=== PATIENT | female | born 1945 | race Caucasian/White ===

== ENCOUNTER 2017-06-19 10:55 | Inpatient (IN) | payer BC, OTHER ==
[~2017-06-19] VITALS: Ht 152.4 cm; Wt 54.5 kg
[~2017-06-19 10:55] MED LIST: ASPI-664 PO; CLON0.1T95 PO; GLIP2.5T15 PO; LISI40TA9 PO; LOPE2CAP PO; METF-480 PO; METO100T PO; SIMVASTATIN PO; TRAM50TA2 PO
[2017-06-19] MEDS ORDERED: SODIUM CHLORIDE 0.9% 1L BAG IV* STA ×2 (11:13→15:42)
[2017-06-19] MEDS ORDERED: FUROSEMIDE 40 MG INJ IV STA (11:22)
[2017-06-19] MEDS ORDERED: NA POLYST SULFON 15 GM/60 ML BTL PO STA (11:22)
[2017-06-19] MEDS ORDERED: NA BICARBONATE 8.4% 50 ML SYG IV STA (11:22)
[2017-06-19] MEDS ORDERED: CA CHLORIDE 10% 10 ML SYRINGE IV STA (11:22)
[2017-06-19 11:41] LABS: ADD SCAN DIFF NO
[2017-06-19 11:44] LABS: BASOPHIL # 0.1 10^3/ul (0.0-0.1); BASOPHILS % 0.4 % (0.0-2.0); EOSINOPHILS # 0.3 10^3/ul (0.0-0.5); HEMATOCRIT 31.5 % (37.0-47.0); HEMOGLOBIN 10.2 g/dl (12.0-16.0); LYMPHOCYTES # 2.4 10^3/ul (0.8-2.9); LYMPHOCYTES % 17.4 % (15.0-51.0); MEAN CORPUSCULAR HEMOGLOBIN 28.4 pg (29.0-33.0); MEAN CORPUSCULAR HGB CONC 32.4 g/dl (32.0-37.0); MEAN CORPUSCULAR VOLUME 87.7 fl (82.0-101.0); MEAN PLATELET VOLUME 11.7 fl (7.4-10.4); MONOCYTES % 7.5 % (0.0-11.0); NEUTROPHIL # 9.7 10^3/ul (1.6-7.5); NEUTROPHILS % 71.8 % (39.0-77.0); PLATELET COUNT 416 10^3/UL (140-415); RED BLOOD COUNT 3.59 10^6/ul (4.20-5.40); RED CELL DISTRIBUTION WIDTH 12.7 % (11.5-14.5); WHITE BLOOD COUNT 13.5 10^3/ul (4.8-10.8)
--- NOTE | 2017-06-19 12:00 | ERA ---
ER Documentation Chief Complaint Date/Time DATE: 06/19/17 TIME: 11:55 Chief Complaint sent by pmd for loss of appet. x20 days, poor historian, son on cellphone HPI This is a 72-year-old Slovak-speaking female that presents to the emergency department complaining of 3 weeks of decrease in appetite, myalgias, decreased urinary output. The son brought the patient to the emergency department after he received a call yesterday from her primary care physician indicating she had abnormal labs. 3 weeks ago the patient had seen her PCP and had ancillary laboratory work performed. The results were given to the patient and her son yesterday with a concern of hyperkalemia as they stated the potassium was 7.0. The patient has no history of renal failure and is not on dialysis. She has had no hemoptysis hematemesis or melanotic stools. She does indicate she has had decreased urinary output as stated above for the past 3 weeks and over the past 12 hours has had no urinary output. She denies any chest pain or pressure that radiates to the neck arm back or jaw. She denies any abdominal pain. 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 She cannot remember the name of her primary care physician. The patient also has a history of non-insulin- dependent diabetes mellitus ROS All systems reviewed and are negative except as per history of present illness. Medications Home Meds Reported Medications Enalapril Maleate* (Enalapril Maleate*) 10 Mg Tablet, 10 MG PO DAILY, TAB 06/19/17 Metformin Hcl* (Metformin Hcl*) 500 Mg Tablet, 1000 MG PO WITH BREAKFAST DINNE, #60 TAB 06/19/17 Discontinued Reported Medications Clonidine Hcl (KAPVAY) 0.1 Mg Tab.er.12h, 0.2 MG PO DAILY 06/28/13 Loperamide Hcl* (Imodium*) 2 Mg Capsule, 2 MG PO BID 03/10/13 Tramadol HCl (Tramadol HCl) 50 Mg Tablet, 50 MG PO PRN PAIN 03/10/13 Glipizide (Glipizide Er) 2.5 Mg/Bottle Tab.osm.24, 2.5 MG PO DAILY, #1 TAB 03/10/13 Lisinopril* (Lisinopril*) 40 Mg Tablet, 40 MG PO DAILY 03/10/13 Metformin* (Glucophage*) 850 Mg Tablet, 850 MG PO TID 03/10/13 Metoprolol (Lopressor) 100 Mg Tablet, 100 MG PO DAILY 03/10/13 Aspirin (Aspirin Low Dose) 81 Mg Tablet.dr, 81 MG PO DAILY 03/10/13 [Simvastatin] No Conflict Check, 20 MG PO DAILY 03/10/13 Allergies Allergies: Coded Allergies: No Known Allergy (Unverified , 06/19/17) PMhx/Soc History of Surgery: Yes (THYROIDECTOMY) Anesthesia Reaction: No Hx Neurological Disorder: No Hx Respiratory Disorders: No Hx Cardiac Disorders: Yes (HTN,CVA) Hx Psychiatric Problems: Yes (DEPRESSION) Hx Miscellaneous Medical Probl: Yes (DIABETES) Hx Alcohol Use: No Hx Substance Use: No Hx Tobacco Use: No Smoking Status: Never smoker Physical Exam Vitals Vital Signs Date Time Temp Pulse Resp B/P Pulse Ox O2 Delivery O2 Flow Rate FiO2 06/19/17 16:32 107 18 108/59 96 06/19/17 14:55 122 24 107/50 96 06/19/17 13:36 129 14 157/91 98 Room Air 06/19/17 11:33 78 20 134/67 93 Room Air 06/19/17 11:00 97.9 76 20 147/66 97 Physical Exam Constitutional:Well-developed. Well-nourished. HEENT:Normocephalic. Atraumatic. Right pupil was reactive to light 2 mm. Corneal clouding of the left eye therefore patient is clinically blind in the left eye from previous stroke with ptosis of the left eye. Dry mucous membranes.No tonsillar exudates. Neck: No nuchal rigidity. No lymphadenopathy. No posterior cervical spine tenderness or step-offs. Respiratory: Not using accessory muscles of respiration.Lungs were clear to auscultation bilaterally. No rhonchi. No rales. No wheezing. Cardiovascular: Regular rate regular rhythm.No murmurs. No rubs were appreciated.S1, S2 normal. Distal pulses are palpable 2+ bilaterally. GI: Abdomen was soft. Nontender. Non Distended. No pulsatile abdominal masses or bruits. No rebound. No guarding. Bowel sounds were present and normal. Muscle skeletal: No asymmetrical calf tenderness or swelling. Full range of motion of the left upper and lower extremity. Muscular strength 2 out of 5 in the right upper and lower extremity with flexion contraction of the right hand. Skin: No petechia, no purpura. No lesions on the palms or the soles of the feet. No maculopapular rash. NEURO: Patient was alert, awake, orientated x3.No facial droop. Gait not observed as patient was brought in a wheelchair and felt too weak to ambulate.Speech had regular rate and rhythm. No focal neurological deficits. Result Diagram: 06/19/17 1130 06/19/17 1130 Results 24 hrs Laboratory Tests Test 06/19/17 11:28 06/19/17 11:30 Bedside Glucose 225mg/dL White Blood Count 13.510^3/ul Red Blood Count 3.5910^6/ul Hemoglobin 10.2g/dl Hematocrit 31.5% Mean Corpuscular Volume 87.7fl Mean Corpuscular Hemoglobin 28.4pg Mean Corpuscular Hemoglobin Concent 32.4g/dl Red Cell Distribution Width 12.7% Platelet Count 13432^3/UL Mean Platelet Volume 11.7fl Neutrophils % 71.8% Lymphocytes % 17.4% Monocytes % 7.5% Eosinophils % 2.0% Basophils % 0.4% Nucleated Red Blood Cells % 0.0/100WBC Neutrophils # 9.710^3/ul Lymphocytes # 2.410^3/ul Monocytes # 1.010^3/ul Eosinophils # 0.310^3/ul Basophils # 0.110^3/ul Nucleated Red Blood Cells # 0.010^3/ul Prothrombin Time 12.1Sec Prothrombin Time Ratio 0.9 INR International Normalized Ratio 0.90 Activated Partial Thromboplast Time 25.0Sec Sodium Level 131mmol/L Potassium Level 7.6mmol/L Chloride Level 97mmol/L Carbon Dioxide Level 23mmol/L Anion Gap 19 Blood Urea Nitrogen 76mg/dl Creatinine 1.85mg/dl Glucose Level 218mg/dl Lactic Acid Level 2.1mmol/L Calcium Level 9.2mg/dl Total Bilirubin 0.1mg/dl Direct Bilirubin 0.00mg/dl Indirect Bilirubin 0.1mg/dl Aspartate Amino Transf (AST/SGOT) 23IU/L Alanine Aminotransferase (ALT/SGPT) 27IU/L Alkaline Phosphatase 116IU/L Troponin I < 0.012ng/ml Total Protein 7.1g/dl Albumin 3.2g/dl Globulin 3.90g/dl Albumin/Globulin Ratio 0.82 Amylase Level 130U/L Lipase 353U/L Current Medications Medications (Trade) Dose Ordered Sig/Kishan Route PRN Reason Start Time Stop Time Status Last Admin Dose Admin Sodium Chloride (NS) 1,690 ml BOLUS OVER 2 HOURS STAT IV* 06/19/17 11:13 06/19/17 11:16 DC 06/19/17 11:50 Furosemide (Lasix) 40 mg ONCE STAT IV 06/19/17 11:22 06/19/17 11:23 DC 06/19/17 12:56 Sodium Polystyrene Sulfonate (Kayexalate) 30 gm ONCE STAT PO 06/19/17 11:22 06/19/17 11:23 DC 06/19/17 12:56 Sodium Bicarbonate (Na Bicarb 8.4% Syg) 50 ml ONCE STAT IV 06/19/17 11:22 06/19/17 11:23 DC 06/19/17 12:56 Calcium Chloride (Ca Chloride 10% Syg) 1,000 mg ONCE STAT IV 06/19/17 11:22 06/19/17 11:23 DC 06/19/17 12:55 Insulin Human Regular (Humulin R) 10 unit ONCE STAT IV 06/19/17 12:44 06/19/17 12:53 DC 06/19/17 13:47 Dextrose (D50w Syringe) ONCE PRN IV POC BLOOD GLUCOSE <250 MG/DL 06/19/17 14:00 06/19/17 13:50 Sodium Chloride (NS) 1,690 ml BOLUS OVER 2 HOURS STAT IV* 06/19/17 15:42 06/19/17 15:45 DC Ondansetron HCl (Zofran Inj) 4 mg ER BRIDGE PRN IV NAUSEA AND/OR VOMITING 06/19/17 16:00 06/20/17 15:59 Acetaminophen 650 mg 650 mg ER BRIDGE PRN PO MILD PAIN/FEVER 06/19/17 16:00 06/20/17 15:59 Sodium Chloride (NS) 1,000 ml @ 125 mls/hr Q8H IV 06/19/17 16:00 IV Flush (NS 3 ml) 3 ml PER PROTOCOL IV 06/19/17 16:00 Ondansetron HCl (Zofran Inj) 4 mg Q6H PRN IV NAUSEA AND/OR VOMITING 06/19/17 16:00 Acetaminophen (Tylenol Tab) 650 mg Q6H PRN PO PAIN LEVEL 1-3 OR FEVER 06/19/17 16:00 Acetaminophen/ Hydrocodone Bitart ([place] (5/325)) 1 tab Q6H PRN PO PAIN LEVEL 4-6 06/19/17 16:00 Morphine Sulfate (morphine) 2 mg Q4H PRN IV PAIN LEVEL 7-10 06/19/17 16:00 Docusate Sodium (Colace) 100 mg Q12H PRN PO CONSTIPATION 06/19/17 16:00 Magnesium Hydroxide (Milk Of Mag) 30 ml DAILY PRN PO CONSTIPATION 06/19/17 16:00 Bisacodyl (Dulcolax Supp) 10 mg DAILY PRN [place] CONSTIPATION 06/19/17 16:00 Famotidine (Pepcid) 20 mg Q12 PO 06/19/17 16:00 06/19/17 16:00 DC Famotidine (Pepcid) 20 mg DAILY PO 06/20/17 09:00 Miscellaneous Information (* Miscellaneous Pharmacy Order) Discontinue current oral sulfonylur... ONCE ONCE XX 06/19/17 16:00 06/19/17 16:44 DC Diagnostic Test (Pha) (Accu-Chek) 1 ea 02 XX 06/20/17 02:00 Miscellaneous Information (* Miscellaneous Pharmacy Order) HYPOGLYCEMIA PROTOCOL w... ONCE ONCE XX 06/19/17 16:00 06/19/17 16:44 DC Insulin Aspart (Novolog Insulin Pen) NOVOLOG *MILD* ALGORITHM WITH MEALS BEDTIME SC 06/19/17 21:00 Miscellaneous Information Discontinue all previ... ONCE ONCE XX 06/19/17 16:00 06/19/17 16:44 DC Sodium Chloride (NS) 1,000 ml @ 1,000 mls/hr Q1H STAT IV 06/19/17 16:08 06/19/17 17:07 DC 06/19/17 16:30 Miscellaneous Information 1 ea NOTE XX 06/19/17 17:00 Glucose (Glutose) 15 gm Q15M PRN PO DECREASED GLUCOSE 06/19/17 17:00 Glucose (Glutose) 22.5 gm Q15M PRN PO DECREASED GLUCOSE 06/19/17 17:00 Dextrose (D50w Syringe) 25 ml Q15M PRN IV DECREASED GLUCOSE 06/19/17 17:00 Dextrose (D50w Syringe) 50 ml Q15M PRN IV DECREASED GLUCOSE 06/19/17 17:00 Glucagon (Glucagen) 1 mg Q15M PRN IM DECREASED GLUCOSE 06/19/17 17:00 Glucose (Glutose) 15 gm Q15M PRN BUCCAL DECREASED GLUCOSE 06/19/17 17:00 Procedures/MDM This patient presented to the emergency department generalized weakness and decreased urinary output with abnormal labs. The patient was immediately placed on a cardiac cath tech continuous pulse oximetry and IV access was established by nursing staff. Immediately obtained an EKG which showed evidence of peaked T waves. Therefore the patient was immediately treated for hyperkalemia given IV Lasix and Kayexalate an amp of bicarb calcium carbonate as well as albuterol. 12 Lead EKG tracing ordered and reviewed by myself showed: Normal sinus rhythm of 74 bpm and no arrhythmia. [place] interval normal. QRS duration normal. No ST segment elevation. Right axis deviation. Peaked T waves in lateral leads No ST segment depression. No changes consistent with acute ischemia. The patient had new onset renal failure. She will be admitted to Dr. in serious condition with an anticipated stay of greater than 2 midnights. A Bartholomew catheter had been placed to measure the patient's urinary output the patient had roughly 1.5 L of urinary output.. 1 view chest radiograph for and reviewed by myself showed no cardiomegaly no infiltrates no pneumothorax I spoke with Dr. Lozano, who is the admitting physician and the patient will be admitted to the telemetry service in serious condition with an anticipated stay of greater than 2 midnights for new onset renal failure Critical Care: Time: 45 minutes Treatments/Evaluations: Close monitoring and treatment of unstable vital signs, cardiorespiratory, and neurologic status, while maintaining tight balance of fluid, respiratory, and cardiac interventions. Time does not include performing any of the above billable procedures. Departure Diagnosis: Primary Impression: Hyperkalemia Additional Impression: Renal failure Condition: Serious LESLIE ALICEA Jun 19, 2017 11:59
[2017-06-19 12:07] LABS: INR 0.9; PROTIME 12.1 Sec (12.2-14.2); PT RATIO 0.9
[2017-06-19 12:15] LABS: ALANINE AMINOTRANSFERASE 27 IU/L (13-69); ALBUMIN 3.2 g/dl (3.3-4.9); ALBUMIN/GLOBULIN RATIO 0.82; ALKALINE PHOSPHATASE 116 IU/L (42-121); AMYLASE 130 U/L (11-123); ANION GAP 19 (8-16); ASPARTATE AMINO TRANSFERASE 23 IU/L (15-46); BILIRUBIN,INDIRECT 0.1 mg/dl (0-1.1); BILIRUBIN,TOTAL 0.1 mg/dl (0.2-1.3); BLOOD UREA NITROGEN 76 mg/dl (7-20); CALCIUM 9.2 mg/dl (8.4-10.2); CARBON DIOXIDE 23 mmol/L (21-31); CHLORIDE 97 mmol/L (97-110); CREATININE 1.85 mg/dl (0.44-1.00); GLUCOSE 218 mg/dl (70-220); SODIUM 131 mmol/L (135-144); TOTAL PROTEIN 7.1 g/dl (6.1-8.1)
[2017-06-19 12:28] LABS: POTASSIUM 7.6 mmol/L (3.5-5.1); TROPONIN-I < 0.012 ng/ml (0.00-0.12)
--- NOTE | 2017-06-19 12:31 | RADRPT ---
PROCEDURE: XR Chest. CLINICAL INDICATION: Possible Sepsis TECHNIQUE: Single frontal view of the chest was obtained COMPARISON: Chest x-ray 06/28/2013 FINDINGS: The cardiomediastinal silhouette is within normal limits. There are atherosclerotic calcifications o f the aorta. There is persistent mild elevation of the right hemidiaphragm. No pneumothorax, significant pleural effusion, or parenchymal consolidation is identified. There are moderate degenerate changes of the visualized spine. IMPRESSION: No evidence of acute cardiopulmonary process. RPTAT: PP Physician Kika Date Time Electronically viewed and signed by Glen Braun Physician on 06/19/2017 12:31 RC/
[2017-06-19] MEDS ORDERED: INSULIN REGULAR, HUMAN 100 UNIT/1 ML 3ML VIAL IV STA (12:44)
[2017-06-19] MEDS ORDERED: DEXTROSE 50% 50 ML SYRINGE IV PRN ×3 (14:00→17:00)
[2017-06-19] MEDS ORDERED: METF500T4 PO (15:01)
[2017-06-19] MEDS ORDERED: ENAL10TA PO (15:04)
[2017-06-19] MEDS ORDERED: ACETAMINOPHEN 325 MG TAB PO PRN ×2 (16:00)
[2017-06-19] MEDS ORDERED: ONDANSETRON 4 MG INJ IV PRN ×2 (16:00)
[2017-06-19] MEDS ORDERED: MAGNESIUM HYDROXIDE 30ML CUP PO PRN (16:00)
[2017-06-19] MEDS ORDERED: FAMOTIDINE 20 MG TAB PO SCH (16:00)
[2017-06-19] MEDS ORDERED: HYDROCODONE/APAP (5/325) TAB PO PRN (16:00)
[2017-06-19] MEDS ORDERED: DOCUSATE SODIUM 100 MG CAP PO PRN (16:00)
[2017-06-19] MEDS ORDERED: morphine 2 MG INJ IV PRN (16:00)
[2017-06-19] MEDS ORDERED: NACL 0.9% 3 ML SYG IV SCH (16:00)
[2017-06-19] MEDS ORDERED: BISACODYL 10 MG SUPP PR PRN (16:00)
[2017-06-19] MEDS ORDERED: SOD CHLORIDE 0.9% 1,000 ML IV STA (16:08)
[2017-06-19] MEDS ORDERED: GLUCOSE GEL 15 GRAM TUBE BUCCAL PRN (17:00)
[2017-06-19] MEDS ORDERED: GLUCOSE GEL 15 GRAM TUBE PO PRN ×2 (17:00)
[2017-06-19] MEDS ORDERED: GLUCAGON 1 MG INJ IM PRN (17:00)
[2017-06-19] MEDS: SOD CHLORIDE 0.9% 1,000 ML IV SCH (17:35)
[2017-06-19 17:44] LABS: CALCIUM 9.9 mg/dl (8.4-10.2); CREATININE 1.75 mg/dl (0.44-1.00); POTASSIUM 5.2 mmol/L (3.5-5.1)
[2017-06-19 18:42] LABS: ADD SCAN DIFF NO
[2017-06-19 18:43] LABS: BASOPHILS % 0.2 % (0.0-2.0); EOSINOPHILS # 0.1 10^3/ul (0.0-0.5); EOSINOPHILS % 0.7 % (0.0-7.0); HEMATOCRIT 28.9 % (37.0-47.0); HEMOGLOBIN 9.6 g/dl (12.0-16.0); LYMPHOCYTES # 1.4 10^3/ul (0.8-2.9); LYMPHOCYTES % 11.6 % (15.0-51.0); MEAN CORPUSCULAR HEMOGLOBIN 29.2 pg (29.0-33.0); MEAN CORPUSCULAR HGB CONC 33.2 g/dl (32.0-37.0); MEAN CORPUSCULAR VOLUME 87.8 fl (82.0-101.0); MEAN PLATELET VOLUME 11.2 fl (7.4-10.4); MONOCYTE # 0.8 10^3/ul (0.3-0.9); MONOCYTES % 6.6 % (0.0-11.0); NEUTROPHIL # 9.9 10^3/ul (1.6-7.5); PLATELET COUNT 388 10^3/UL (140-415); RED BLOOD COUNT 3.29 10^6/ul (4.20-5.40); RED CELL DISTRIBUTION WIDTH 12.4 % (11.5-14.5); WHITE BLOOD COUNT 12.4 10^3/ul (4.8-10.8)
[2017-06-19 19:01] LABS: ALBUMIN 2.8 g/dl (3.3-4.9); ALBUMIN/GLOBULIN RATIO 0.77; CALCIUM 9.3 mg/dl (8.4-10.2); CREATININE 1.63 mg/dl (0.44-1.00); TOTAL PROTEIN 6.4 g/dl (6.1-8.1)
[2017-06-19 19:40] VITALS: BP 130/60; PULSE 101; RESP 18
[2017-06-19 20:00] VITALS: PULSE 101
[2017-06-19 20:03] VITALS: BP 130/60; RESP 18
[2017-06-19] MEDS: INSULIN ASPART [NOVOLOG] 3 ML PEN SC SCH (21:23)
[2017-06-19 23:45] VITALS: BP 136/64; RESP 18
[2017-06-20] VITALS (8 sets, daily range): BP systolic 132–165; BP diastolic 60–84; PULSE 79–82; RESP 16–19
[2017-06-20] MEDS: SOD CHLORIDE 0.9% 1,000 ML IV SCH ×2 (00:20→08:23)
[2017-06-20] MEDS ORDERED: ACCU-CHEK XX SCH (02:00)
[2017-06-20] MEDS: INSULIN ASPART [NOVOLOG] 3 ML PEN SC SCH ×3 (08:00→17:42)
[2017-06-20 08:40] LABS: ADD SCAN DIFF NO
[2017-06-20 08:45] LABS: BASOPHILS % 0.4 % (0.0-2.0); EOSINOPHILS # 0.3 10^3/ul (0.0-0.5); EOSINOPHILS % 2.5 % (0.0-7.0); HEMATOCRIT 27.1 % (37.0-47.0); HEMOGLOBIN 8.7 g/dl (12.0-16.0); LYMPHOCYTES % 19.7 % (15.0-51.0); MEAN CORPUSCULAR HEMOGLOBIN 28.5 pg (29.0-33.0); MEAN CORPUSCULAR HGB CONC 32.1 g/dl (32.0-37.0); MEAN CORPUSCULAR VOLUME 88.9 fl (82.0-101.0); MEAN PLATELET VOLUME 11.5 fl (7.4-10.4); MONOCYTE # 0.8 10^3/ul (0.3-0.9); MONOCYTES % 7.4 % (0.0-11.0); NEUTROPHIL # 7.1 10^3/ul (1.6-7.5); NEUTROPHILS % 69.2 % (39.0-77.0); PLATELET COUNT 352 10^3/UL (140-415); RED BLOOD COUNT 3.05 10^6/ul (4.20-5.40); RED CELL DISTRIBUTION WIDTH 12.6 % (11.5-14.5); WHITE BLOOD COUNT 10.3 10^3/ul (4.8-10.8)
[2017-06-20] MEDS ORDERED: FAMOTIDINE 20 MG TAB PO SCH (09:00)
[2017-06-20 09:14] LABS: ALBUMIN 2.3 g/dl (3.3-4.9); ALBUMIN/GLOBULIN RATIO 0.79; CALCIUM 8.5 mg/dl (8.4-10.2); CHOL/HDL RATIO 5.4 RATIO; CREATININE 1.35 mg/dl (0.44-1.00); MAGNESIUM 1.4 mg/dl (1.7-2.5); POTASSIUM 4.6 mmol/L (3.5-5.1); TOTAL PROTEIN 5.2 g/dl (6.1-8.1)
[2017-06-20] MEDS ORDERED: LINAGLIPTIN 5 MG TABLET PO SCH (09:30)
[2017-06-20] MEDS ORDERED: AMLODIPINE 5 MG TAB PO SCH (09:30)
[2017-06-20] MEDS ORDERED: INSULIN GLARGINE [LANtus] 3 ML PEN SC SCH (10:00)
--- NOTE | 2017-06-20 10:32 | HP ---
Date/Time of Note Date/Time of Note DATE: 06/20/17 TIME: 10:12 Assessment/Plan VTE Prophylaxis VTE Prophylaxis Intervention: SCD's Lines/Catheters IV [facility]ter [facility]from [facility] Sal[place] Lock Urinary Cath still in place: Yes Reason Cath still needed: other (indicate) (Acute on chronic kidney disease, to be discontinued today) Assessment/Plan Assessment/Plan 72-year-old female with: 1. Chronic kidney disease with acute kidney injury, patient found to be hyperkalemic likely chronic. KAYLENE inhibitor was discontinued, metformin on hold , patient has been treated and potassium level down to 4.9 this morning. No telemetry changes. Bartholomew catheter will be discontinued, renal ultrasound pending. Patient apparently is being followed by a health information systems technician she will have to follow-up with him or her I have discontinued KAYLENE inhibitors, will change her blood pressure medication to Norvasc for now. I have switched her oral hypoglycemic agent to Tradjenta and holding off metformin for now. She has excellent urine output with IV fluids, the rate will be decreased and possible discharge planning later this afternoon with outpatient nephrology follow-up 2. Diabetes mellitus, hemoglobin A1c of 12.4, patient is uncontrolled while she claims compliance with metformin it is unclear if she is compliant with diet also. She already refuses to take insulin. Therefore I have put on Tradjenta, diabetic education pending if safe will put her back on metformin at time of discharge with outpatient primary care physician follow-up and lifestyle modification including a diabetic diet. 3. Hypertension: We will switch her to Norvasc given her hypokalemia and renal insufficiency. Follow-up with PCP and health information systems technician 4. Reported hyperlipidemia: Resume statin therapy 5. Status post thyroidectomy remotely: It is odd that the patient is not on Synthroid, check thyroid function test 6. Anemia, likely chronic, likely secondary to chronic kidney disease and diabetes mellitus. Check iron panel, given history of previous thyroidectomy check thyroid function testing. 7. UTI with GNR on urine cx, levaquin 250 mg po daily x 5 days at most Prophylaxis: SCDs for DVT prophylaxis, Pepcid for GI prophylaxis Disposition: Diabetic education, renal ultrasound, discharge planning later today if patient remains stable HPI/ROS Admit Date/Time Admit Date/Time Jun 19, 2017 at 15:43 Hx of Present Illness Chief complaint: Abnormal labs History of presenting illness: This is a 72-year-old female with hypertension, diabetes mellitus, chronic kidney disease apparently recently went to a health information systems technician, sent over to the emergency department due to abnormal labs and a reported outpatient potassium level around 7, these labs were drawn 2 weeks ago , in the emergency department repeat labs show a potassium of 7.2 and renal insufficiency. Bartholomew catheter was placed by ER physician, patient was treated for hyperkalemia and started on IV fluids. She reports that at home she was having episodes of nausea and generalized weakness and lethargy. No chest pain, no headaches, no neurological deficits. Her hemoglobin A1c is at 12, she has been taking metformin despite her renal insufficiency with obviously not well controlled blood sugars. I have discussed insulin treatment with her which she is refusing categorically right now and already hinting to the fact that she will not take it as an outpatient. I will start him on Tradjenta, diabetic education pending, if renal function permits she will go back on metformin as again the likelihood of noncompliance with insulin is very high and she definitely needs some control of her blood sugars. Her potassium level this morning is down to 4.9. Her Enalapril has been discontinued and it likely contributed to her hypokalemia. I also educated her that her blood pressure medication will have to be changed. 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) Cardiovascular: no complaints Gastrointestinal: nausea Genitourinary: no complaints Skin: no complaints Neurologic: no complaints PMH/Family/Social Past Medical History Hypertension Diabetes mellitus Hyperlipidemia Chronic kidney disease likely diabetic nephropathy Past Surgical History Status post thyroidectomy per patient Social History Alcohol Use: none Smoking Status: Never smoker Drug Use: none Exam/Review of Systems Vital Signs Vitals Vital Signs Date Time Temp Pulse Resp B/P Pulse Ox O2 Delivery O2 Flow Rate FiO2 06/20/17 08:16 98.6 84 18 132/60 97 06/19/17 19:40 Room Air Intake and Output 06/19/17 06/19/17 06/20/17 15:00 23:00 07:00 Intake Total 1500 ml 925 ml Output Total 1350 ml 1000 ml Balance 150 ml -75 ml Exam Constitutional: alert, oriented, well developed Eyes: other (Chronic left eye ptosis) Respiratory: clear to auscultation, normal air movement Cardiovascular: nl pulses, regular rate and rhythm Gastrointestinal: non-tender, soft Genitourinary - Male: other (Bartholomew catheter with clear yellow urine) Musculoskeletal: nl extremities to inspection Extremities: normal pulses, other (No edema, clubbing or cyanosis) Neurological: DISEASE MANAGEMENT NURSE II-XII intact, nl mental status, nl speech Labs Result Diagram: 06/20/17 0739 06/20/17 0740 Medications Medications Home medications: Metformin 1000 mg p.o. twice daily Enalapril 10 mg p.o. daily Cholesterol medication Current Medications Dextrose ONCE PRN IV POC BLOOD GLUCOSE <250 MG/DL Last administered on 13:50; Admin Dose 50 ML; Start 06/19/17 at 14:00 Sodium Chloride (NS) 1,000 ml @ 75 mls/hr [id number] IV Last administered on 06/20 08:23; Admin Dose 125 MLS/HR; Start 06/19/17 at 16:00 Ondansetron HCl (Zofran Inj) 4 mg Q6H PRN IV NAUSEA AND/OR VOMITING; Start at 16:00 Acetaminophen (Tylenol Tab) 650 mg Q6H PRN PO PAIN LEVEL 1-3 OR FEVER; Start at 16:00 Acetaminophen/ Hydrocodone Bitart ([place] (5/325)) 1 tab Q6H PRN PO PAIN LEVEL 4 -6; Start 06/19/17 at 16:00 Morphine Sulfate (morphine) 2 mg Q4H PRN IV PAIN LEVEL 7-10; Start 06/19/17 at 16:00 Docusate Sodium (Colace) 100 mg Q12H PRN PO CONSTIPATION; Start 06/19/17 at 16: 00 Magnesium Hydroxide (Milk Of Mag) 30 ml DAILY PRN PO CONSTIPATION; Start at 16:00 Bisacodyl (Dulcolax Supp) 10 mg DAILY PRN [place] CONSTIPATION; Start 06/19/17 at 16 :00 Famotidine (Pepcid) 20 mg DAILY PO Last administered on 06/20/17 09:08; Admin Dose 20 MG; Start 06/20/17 at 09:00 Diagnostic Test (Pha) (Accu-Chek) 1 ea 02 XX ; Start 06/20/17 at 02:00 Miscellaneous Information 1 ea NOTE XX ; Start 06/19/17 at 17:00 Glucose (Glutose) 15 gm Q15M PRN PO DECREASED GLUCOSE; Start 06/19/17 at 17:00 Glucose (Glutose) 22.5 gm Q15M PRN PO DECREASED GLUCOSE; Start 06/19/17 at 17: 00 Dextrose (D50w Syringe) 25 ml Q15M PRN IV DECREASED GLUCOSE; Start 06/19/17 at 17:00 Dextrose (D50w Syringe) 50 ml Q15M PRN IV DECREASED GLUCOSE; Start 06/19/17 at 17:00 Glucagon (Glucagen) 1 mg Q15M PRN IM DECREASED GLUCOSE; Start 06/19/17 at 17:00 Glucose (Glutose) 15 gm Q15M PRN BUCCAL DECREASED GLUCOSE; Start 06/19/17 at 17 :00 Linagliptin (Tradjenta) 5 mg DAILY PO ; Start 06/20/17 at 09:30 Amlodipine Besylate (Norvasc) 5 mg DAILY PO ; Start 06/20/17 at 09:30 Insulin Glargine (Lantus) 12 unit DAILY@08 SC ; Start 06/20/17 at 10:00 Procedures Procedures PROCEDURE: XR Chest. CLINICAL INDICATION: Possible Sepsis TECHNIQUE: Single frontal view of the chest was obtained COMPARISON: Chest x-ray 06/28/2013 FINDINGS: The cardiomediastinal silhouette is within normal limits. There are atherosclerotic calcifications of the aorta. There is persistent mild elevation of the right hemidiaphragm. No pneumothorax, significant pleural effusion, or parenchymal consolidation is identified. There are moderate degenerate changes of the visualized spine. IMPRESSION: No evidence of acute cardiopulmonary process. RPTAT: PP Physician Kika Date Time Electronically viewed and signed by Glen Braun Physician on 06/19/2017 12: 31 YOUNG BETANCOURT Jun 20, 2017 10:23
[2017-06-20] MEDS ORDERED: INSULIN ASPART [NOVOLOG] 3 ML PEN SC SCH (12:00)
[2017-06-20 12:49] LABS: IRON 33 ug/dl (35-150)
[2017-06-20 12:59] LABS: TOTAL IRON BINDING CAPACITY 213 ug/dl (241-421)
[2017-06-20] MEDS ORDERED: MULTIVIT/CA CARB/B CMPLX/FA TAB PO SCH (13:30)
[2017-06-20] MEDS ORDERED: FERROUS SULFATE (EC) 325 MG TAB PO SCH (13:30)
[2017-06-20] MEDS ORDERED: MAGNESIUM SULFATE 2 GM/50 ML 50 ML IVPB ONE (13:30)
[2017-06-20] MEDS ORDERED: LEVOFLOXACIN 250 MG TAB PO SCH (13:30)
--- NOTE | 2017-06-20 15:51 | RADRPT ---
PROCEDURE: Renal US. CLINICAL INDICATION: renal insufficiency, CKD TECHNIQUE: Multiple gaines scale and color Doppler sonographic images of the kidneys were obtained. The images were reviewed on a PACS workstation. COMPARISON: No prior studies are available for comparison. FINDINGS: The kidneys are well visualized. The right kidney measures 10.0 cm. The left kidney measures 8.2 cm. Both kidneys demonstrate increased renal cortical echogenicity, suggesting renal parenchymal diseas e. No shadowing renal calculus is identified. There is no evidence of hydronephrosis. Blood flow is demonstrated to both kidneys by color Doppler. IMPRESSION: Bilateral echogenic kidneys, suggesting renal parenchymal disease. RPTAT: PP Physician Kika Date Time Electronically viewed and signed by Physician Kika on 06/20/2017 15:51 /
[2017-06-20 17:16] LABS: ADD UMIC YES; UR ASCORBIC ACID NEGATIVE (NEGATIVE); UR BACTERIA FEW /HPF (NONE SEEN); UR BILIRUBIN (Dip) NEGATIVE (NEGATIVE); UR BLOOD (Dip) 1+ mg/dL (NEGATIVE); UR CLARITY SLIGHTLY CLOUDY (CLEAR); UR COLOR YELLOW (YELLOW); UR GLUCOSE (Dip) NEGATIVE (NEGATIVE); UR KETONES (Dip) NEGATIVE (NEGATIVE); UR LEUKOCYTE ESTERASE (Dip) 3+ Leu/ul (NEGATIVE); UR NITRITE (Dip) POSITIVE (NEGATIVE); UR RBC 1 /HPF (0-5); UR TOTAL PROTEIN (Dip) NEGATIVE (NEGATIVE); UR UROBILINOGEN (Dip) NEGATIVE (NEGATIVE)
[2017-06-20] MEDS ORDERED: metFORMIN 500 MG TAB PO SCH (18:05)
--- NOTE | 2017-06-20 18:07 | PDOCDIS ---
Discharge Instructions CONDITION Patient Condition: Stable HOME CARE INSTRUCTIONS: Special Diet: renal diet ACTIVITY: Activity Restrictions: Slowly Increase Activity FOLLOW UP/APPOINTMENTS Follow-up Plan Follow up with PCP within 1 week re DM and refusal to use Insulin despite A1c of 12 Referral to Nephrology within 1 to 2 weeks for progressing CKD YOUNG BETANCOURT Jun 20, 2017 18:07
[2017-06-20] MEDS ORDERED: LEVO250T35 PO (18:10)
[2017-06-20] MEDS ORDERED: FER325 PO (18:10)
[2017-06-20] MEDS ORDERED: AMLO-145 PO (18:10)
[2017-06-20] MEDS ORDERED: NEPH PO (18:10)
[2017-06-20] MEDS ORDERED: LINA5TAB PO (18:10)
== END 2017-06-20 18:55 | disposition home or self-care (01) | DRG 641 ==
LOC: E/R 10:55 → MS4 15:43
PROVIDERS: ADMIT Internal Medicine; ATTEND Internal Medicine
DX: E87.5 Hyperkalemia (principal); N17.9 Acute kidney failure, unspecified; E11.22 Type 2 diabetes mellitus with diabetic chronic kidney disease; E11.65 Type 2 diabetes mellitus with hyperglycemia; I69.351 Hemiplegia and hemiparesis following cerebral infarction affecting right dominant side; N39.0 Urinary tract infection, site not specified; F32.9 Major depressive disorder, single episode, unspecified; H54.42 Blindness, left eye, normal vision right eye; I12.9 Hypertensive chronic kidney disease with stage 1 through stage 4 chronic kidney disease, or unspecified chronic kidney disease; N18.9 Chronic kidney disease, unspecified; Z79.4 Long term (current) use of insulin; E78.5 Hyperlipidemia, unspecified; D63.1 Anemia in chronic kidney disease; E89.0 Postprocedural hypothyroidism
CPT/HCPCS: 71010; 76775; 80048; 80053; 80061; 81001; 82150; 82728; 82962; 83036; 83540; 83605; 83690; 83735; 84439; 84443; 84484; 85025; 85610; 85730; 87040; 87086; 93005; 96374; 96375; J1815; J1940; J3475; J7030

== ENCOUNTER 2017-08-05 19:47 | Emergency (ER) | payer BC ==
[~2017-08-05] VITALS: Ht 152.4 cm; Wt 52.0 kg
[~2017-08-05 19:47] MED LIST changes: +AMLO-145 PO; -ASPI-664 PO; -CLON0.1T95 PO; +FER325 PO; -GLIP2.5T15 PO; +LEVO250T35 PO; +LINA5TAB PO; -LISI40TA9 PO; -LOPE2CAP PO; -METF-480 PO; +METF500T4 PO; -METO100T PO; +NEPH PO; -SIMVASTATIN PO; -TRAM50TA2 PO
[2017-08-05 19:51] VITALS: Ht 152.4 cm; Wt 52.0 kg
[2017-08-06] MEDS ORDERED: ONDANSETRON (ODT) 4 MG TAB ODT STA (01:12)
[2017-08-06] MEDS ORDERED: HYDROCODONE/APAP (5/325) TAB PO ONE (01:30)
[2017-08-06] MEDS ORDERED: LIDOCAINE 1% (MDV) 20 ML INJ SC ONE (01:30)
[2017-08-06] MEDS ORDERED: ONDANSETRON 4 MG INJ IV STA (01:59)
[2017-08-06] MEDS ORDERED: morphine 4 MG/ML VIAL IV STA (01:59)
[2017-08-06] MEDS ORDERED: CLINDAMYCIN 300 MG INJ IV ONE (02:00)
[2017-08-06] MEDS ORDERED: CLINDAMYCIN 600 MG/D5W (PMX) 50 ML IVPB ONE (02:10)
--- NOTE | 2017-08-06 02:16 | ERD ---
ER Documentation Chief Complaint Date/Time DATE: 08/06/17 TIME: 02:16 Chief Complaint L pelvic abscess for a week HPI 72-year-old female with a history of diabetes presents the emergency department for complaints of a left sided mass in the groin. Patient states that the mass appeared 1 week ago and is associated with gradually worsening 10 out of 10 sharp pain. She denies fever but notes feeling warm at home. She denies nausea , vomiting, diarrhea, abdominal pain, headache, chest pain or shortness of breath. ROS All systems reviewed and are negative except as per history of present illness. Medications Home Meds Active Scripts Sulfamethoxazole/Trimethoprim* (Bactrim Ds* Tablet) 1 Each Tablet, 1 TAB PO BID , #14 TAB Prov:SHALINI SMILEY PA-C 08/06/17 Cephalexin* (Keflex*) 500 Mg Capsule, 500 MG PO BID for 10 Days, CAP Prov:SHALINI SMILEY PA-C 08/06/17 Ibuprofen* (Motrin*) 600 Mg Tab, 600 MG PO Q6, #30 TAB Prov:SHALINI SMILEY PA-C 08/06/17 Hydrocodone/Acetaminophen ([place] 5-325 Tablet) 1 Each Tablet, 1 TAB PO Q6H Y for PAIN, #20 TAB Prov:SHALINI SMILEY PA-C 08/06/17 Multivit/Ca Carb/B Cmplx/Fa* (Sanjana-Mark*) 1 Tab Tab, 1 TAB PO DAILY for 30 Days , TAB 3 Refills Prov:YOUNG BETANCOURT 06/20/17 Linagliptin (TRADJENTA) 5 Mg Tablet, 5 MG PO DAILY for 30 Days, TAB 3 Refills Prov:YOUNG BETANCOURT 06/20/17 Amlodipine Besylate* (Amlodipine Besylate*) 5 Mg Tablet, 5 MG PO DAILY for 30 Days, TAB 3 Refills Prov:YOUNG BETANCOURT 06/20/17 Ferrous Sulfate* (Ferrous Sulfate*) 325 Mg Tabec, 325 MG PO DAILY for 30 Days, TAB 3 Refills Prov:YOUNG BETANCOURT 06/20/17 Levofloxacin* (Levaquin*) 250 Mg Tablet, 250 MG PO DAILY@06 for 4 Days, TAB Prov:YOUNG BETANCOURT 06/20/17 Reported Medications Metformin Hcl* (Metformin Hcl*) 500 Mg Tablet, 1000 MG PO WITH BREAKFAST DINNE, #60 TAB 06/19/17 Allergies Allergies: Coded Allergies: No Known Allergy (Unverified , 06/19/17) PMhx/Soc History of Surgery: Yes (THYROIDECTOMY) Anesthesia Reaction: No Hx Neurological Disorder: Yes (CVA W/RIGHT HEMIPARESIS) Hx Respiratory Disorders: No Hx Cardiac Disorders: Yes (HTN) Hx Psychiatric Problems: Yes (DEPRESSION) Hx Miscellaneous Medical Probl: No Hx Alcohol Use: No Hx Substance Use: No Hx Tobacco Use: No Smoking Status: Never smoker Physical Exam Vitals Vital Signs Date Time Temp Pulse Resp B/P Pulse Ox O2 Delivery O2 Flow Rate FiO2 08/06/17 04:25 98.3 77 20 169/75 96 Room Air 08/05/17 19:51 98.5 100 20 185/79 96 Physical Exam Const: Well-nourished, in moderate distress Head: Atraumatic Eyes: Normal Conjunctiva ENT: Normal External Ears, Nose and Mouth. Neck: Full range of motion..~ No meningismus. Resp: Clear to auscultation bilaterally Cardio: Regular rate and rhythm, no murmurs Abd: Soft, non tender, non distended. Normal bowel sounds Skin: Left groin: There is a 3 cm hard mass located to the left inguinal region with erythema, ulceration, and active purulent discharge. Purulent fluid expressed when pressure was applied. Mass is very tender to palpation. Mild surrounding erythema. Back: No midline or flank tenderness Ext: No cyanosis, or edema Neur: Awake and alert Psych: Normal Mood and Affect Result Diagram: 08/06/175 08/06/17 0225 Results 24 hrs Laboratory Tests Test 08/06/17 02:25 White Blood Count 13.610^3/ul Red Blood Count 3.1710^6/ul Hemoglobin 9.2g/dl Hematocrit 27.7% Mean Corpuscular Volume 87.4fl Mean Corpuscular Hemoglobin 29.0pg Mean Corpuscular Hemoglobin Concent 33.2g/dl Red Cell Distribution Width 13.6% Platelet Count 79492^3/UL Mean Platelet Volume 11.2fl Neutrophils % 67.1% Lymphocytes % 23.6% Monocytes % 6.2% Eosinophils % 2.4% Basophils % 0.3% Nucleated Red Blood Cells % 0.0/100WBC Neutrophils # (Manual) 9.110^3/ul Lymphocytes # 3.210^3/ul Monocytes # 0.910^3/ul Eosinophils # 0.310^3/ul Basophils # 0.010^3/ul Nucleated Red Blood Cells # 0.010^3/ul Sodium Level 139mmol/L Potassium Level 4.3mmol/L Chloride Level 105mmol/L Carbon Dioxide Level 25mmol/L Anion Gap 13 Blood Urea Nitrogen 36mg/dl Creatinine 1.39mg/dl Glucose Level 170mg/dl Calcium Level 8.9mg/dl Total Bilirubin 0.0mg/dl Direct Bilirubin 0.00mg/dl Indirect Bilirubin 0.0mg/dl Aspartate Amino Transf (AST/SGOT) 20IU/L Alanine Aminotransferase (ALT/SGPT) 23IU/L Alkaline Phosphatase 129IU/L Total Protein 7.9g/dl Albumin 3.6g/dl Globulin 4.30g/dl Albumin/Globulin Ratio 0.83 Current Medications Medications (Trade) Dose Ordered Sig/Kishan Route PRN Reason Start Time Stop Time Status Last Admin Dose Admin Acetaminophen/ Hydrocodone Bitart ([place] (5/325)) 1 tab ONCE ONCE PO 08/06/17 01:30 08/06/17 01:31 DC 08/06/17 01:23 Ondansetron HCl (Zofran Odt) 4 mg ONCE STAT ODT 08/06/17 01:12 08/06/17 01:13 DC 08/06/17 01:23 Lidocaine (Xylocaine 1% (Mdv) 20 ml) 20 ml ONCE ONCE SC 08/06/17 01:30 08/06/17 01:31 DC Clindamycin Phosphate (Cleocin) 600 mg ONCE ONCE IV 08/06/17 02:00 08/06/17 02:01 Cancel Morphine Sulfate (morphine) 4 mg ONCE STAT IV 08/06/17 01:59 08/06/17 02:01 DC 08/06/17 02:20 Ondansetron HCl 4 mg 4 mg ONCE STAT IV 08/06/17 01:59 08/06/17 02:01 DC 08/06/17 02:20 Clindamycin HCl/ Dextrose (Cleocin 600 Mg/ D5W (Pmx)) 50 ml @ 50 mls/hr ONCE ONCE IVPB 08/06/17 02:10 08/06/17 03:09 DC 08/06/17 02:38 Procedures/MDM PROCEDURE: Ultrasound examination of the left groin. CLINICAL INDICATION: Pain and swelling. TECHNIQUE: Multiple sonographic images of the left groin were obtained with gaines scale and color Doppler. COMPARISON: None. FINDINGS: There is a complex heterogeneous area within the left groin measuring 3.2 x 1.6 x 2.3 cm with color flow. IMPRESSION: Heterogeneous area within the left groin with color flow could represent an enlarged lymph node or mass. .Nura Cross MD, MD Date Time Electronically viewed and signed by .Nura Cross MD, on 08/06/2017 03:08 .T/ CC: SHALINI SMILEY PA-C This is a 72-year-old diabetic patient who presents emergency department for complaints of a painful mass in her left groin 1 week with associated mild fever. Abscess Incision and Drainage with irrigation by me: Location: Left groin Anesthesia: Local 1% Lidocaine Technique: Pressure applied to the mass and purulent drainage was expressed. A superficial incision was made allowing a small amount of purulent fluid to be drained superficially. There was still a deep hardened mass which would not drain. Packing: None Complications: Neurovascularly intact post procedure ED Ultrasound: Revealed evidence of a homogenized solid mass, concerning for lymph node versus other solid mass CBC with evidence of mild normocytic anemia, likely due to chronic disease. Patient without evidence of obvious bleeding. CMP without evidence of severe electrolyte imbalance, hyperglycemia, acidosis or alkalosis. Creatinine mildly elevated. Patient with a history of diabetes and likely chronic kidney disease. History and physical exam concerning for possible cancerous lesion. Patient received antibiotics and pain medicine while in the emergency department as the superficial tissue was erythematous, ulcerative and with purulent discharge. Deep tissue was hardened and ultrasound without evidence of fluid-filled cyst. Patient's skin symptoms have stabilized while they have been evaluated in the department and are appropriate for outpatient care and work up. Exam and w/u not consistent w/ sepsis, deep space infection, or foreign body. Departure Diagnosis: Primary Impression: Cellulitis Site of cellulitis: other site Qualified Code: L03.818 - Cellulitis of other specified site Additional Impression: Inguinal mass SHALINI SMILEY PA-C Aug 06, 2017 02:16
[2017-08-06 03:03] LABS: BASOPHILS % 0.3 % (0.0-2.0); EOSINOPHILS # 0.3 10^3/ul (0.0-0.5); EOSINOPHILS % 2.4 % (0.0-7.0); HEMATOCRIT 27.7 % (37.0-47.0); HEMOGLOBIN 9.2 g/dl (12.0-16.0); LYMPHOCYTES # 3.2 10^3/ul (0.8-2.9); LYMPHOCYTES % 23.6 % (15.0-51.0); MEAN CORPUSCULAR HGB CONC 33.2 g/dl (32.0-37.0); MEAN CORPUSCULAR VOLUME 87.4 fl (82.0-101.0); MEAN PLATELET VOLUME 11.2 fl (7.4-10.4); MONOCYTE # 0.9 10^3/ul (0.3-0.9); MONOCYTES % 6.2 % (0.0-11.0); NEUTROPHILS % 67.1 % (39.0-77.0); PLATELET COUNT 311 10^3/UL (140-415); RED BLOOD COUNT 3.17 10^6/ul (4.20-5.40); RED CELL DISTRIBUTION WIDTH 13.6 % (11.5-14.5); WHITE BLOOD COUNT 13.6 10^3/ul (4.8-10.8)
--- NOTE | 2017-08-06 03:08 | RADRPT ---
PROCEDURE: Ultrasound examination of the left groin. CLINICAL INDICATION: Pain and swelling. TECHNIQUE: Multiple sonographic images of the left groin were obtained with gaines scale and color D oppler. COMPARISON: None. FINDINGS: There is a complex heterogeneous area within the left groin measuring 3.2 x 1.6 x 2.3 cm with color flow. IMPRESSION: Heterogeneous area within the left groin with color flow could represent an enlarged lymph node or m ass. .Nura Cross MD, MD Date Time Electronically viewed and signed by .Nura Cross MD, MD on 08/06/2017 03:08 .T/
[2017-08-06 03:23] LABS: ALBUMIN 3.6 g/dl (3.3-4.9); ALBUMIN/GLOBULIN RATIO 0.83; CALCIUM 8.9 mg/dl (8.4-10.2); CREATININE 1.39 mg/dl (0.44-1.00); POTASSIUM 4.3 mmol/L (3.5-5.1); TOTAL PROTEIN 7.9 g/dl (6.1-8.1)
[2017-08-06] MEDS ORDERED: HYDR-906 PO (04:10)
[2017-08-06] MEDS ORDERED: SULF1TAB31 PO (04:10)
[2017-08-06] MEDS ORDERED: IBUP-1542 PO (04:10)
[2017-08-06] MEDS ORDERED: CEPH-443 PO (04:10)
[2017-08-06 04:25] VITALS: BP 169/75; PULSE 77; RESP 20; TEMP 98.3
== END 2017-08-06 04:25 | disposition home or self-care (01) ==
LOC: FTE 19:47
DX: L03.311 Cellulitis of abdominal wall (principal); I10 Essential (primary) hypertension; Z79.84 Long term (current) use of oral hypoglycemic drugs
CPT/HCPCS: 76536; 80053; 85025; 96374; 96375; 99285; J2270; J2405; Z7610

== ENCOUNTER 2017-08-27 09:28 | Day surgery (SDC) | payer BC ==
[~2017-08-27] VITALS: Ht 152.4 cm; Wt 46.8 kg
[~2017-08-27 09:28] MED LIST changes: +CEPH-443 PO; +HYDR-906 PO; +IBUP-1542 PO; +SULF1TAB31 PO
[2017-08-27] MEDS ORDERED: ATOR20TA38 PO (09:56)
[2017-08-27] MEDS ORDERED: GLIP5TAB13 PO ×2 (09:57)
[2017-08-27 10:08] VITALS: BP 176/67; PULSE 101; RESP 18; Ht 152.4 cm; Wt 46.8 kg
[2017-08-27 10:35] LABS: BASOPHILS % 0.3 % (0.0-2.0); EOSINOPHILS # 0.3 10^3/ul (0.0-0.5); EOSINOPHILS % 3.1 % (0.0-7.0); HEMATOCRIT 32.2 % (37.0-47.0); HEMOGLOBIN 10.5 g/dl (12.0-16.0); LYMPHOCYTES # 2.6 10^3/ul (0.8-2.9); LYMPHOCYTES % 26.7 % (15.0-51.0); MEAN CORPUSCULAR HEMOGLOBIN 28.8 pg (29.0-33.0); MEAN CORPUSCULAR HGB CONC 32.6 g/dl (32.0-37.0); MEAN CORPUSCULAR VOLUME 88.2 fl (82.0-101.0); MEAN PLATELET VOLUME 11.1 fl (7.4-10.4); MONOCYTE # 0.6 10^3/ul (0.3-0.9); MONOCYTES % 6.3 % (0.0-11.0); NEUTROPHIL # 6.1 10^3/ul (1.6-7.5); NEUTROPHILS % 63.4 % (39.0-77.0); PLATELET COUNT 269 10^3/UL (140-415); RED BLOOD COUNT 3.65 10^6/ul (4.20-5.40); RED CELL DISTRIBUTION WIDTH 14.6 % (11.5-14.5); WHITE BLOOD COUNT 9.7 10^3/ul (4.8-10.8)
[2017-08-27 10:42] LABS: INR 0.89; PT RATIO 0.9
[2017-08-27 10:43] LABS: PARTIAL THROMBOPLASTIN TIME 25.6 Sec (25.0-35.0)
[2017-08-27 10:52] LABS: ALBUMIN 4.2 g/dl (3.3-4.9); ALBUMIN/GLOBULIN RATIO 0.95; BILIRUBIN,INDIRECT 0.2 mg/dl (0-1.1); BILIRUBIN,TOTAL 0.2 mg/dl (0.2-1.3); TOTAL PROTEIN 8.6 g/dl (6.1-8.1)
[2017-08-27 10:59] LABS: CALCIUM 9.8 mg/dl (8.4-10.2); CREATININE 1.4 mg/dl (0.44-1.00); POTASSIUM 4.5 mmol/L (3.5-5.1)
[2017-08-27] MEDS ORDERED: FENTAnyl 50 MCG/ML VIAL ONE (12:13)
[2017-08-27] MEDS ORDERED: MIDAZOLAM 1 MG/ML 2 ML INJ ONE (12:13)
[2017-08-27] MEDS ORDERED: HEPARIN 1000 UNITS/ML 10 ML INJ ONE (12:13)
[2017-08-27] MEDS ORDERED: LIDOCAINE 1% (MDV) 20 ML INJ ONE (12:13)
[2017-08-27] MEDS ORDERED: IODIXANOL LOCM 100 ML BTL ONE (12:41)
[2017-08-27] MEDS ORDERED: FER325 PO (14:51)
[2017-08-28] MEDS ORDERED: APIX5TAB PO (10:04)
[2017-08-28] MEDS ORDERED: METO-448 PO (10:04)
[2017-08-28] MEDS ORDERED: ATOR20TA38 PO (10:53)
== END 2017-08-27 14:35 | disposition home or self-care (01) ==
LOC: SDS 09:28
PROVIDERS: ATTEND Surgery Vascular Surgery
DX: I70.223 Atherosclerosis of native arteries of extremities with rest pain, bilateral legs (principal); Z53.9 Procedure and treatment not carried out, unspecified reason; I12.9 Hypertensive chronic kidney disease with stage 1 through stage 4 chronic kidney disease, or unspecified chronic kidney disease; E11.22 Type 2 diabetes mellitus with diabetic chronic kidney disease; N18.3 Chronic kidney disease, stage 3 (moderate); Z79.84 Long term (current) use of oral hypoglycemic drugs; I25.10 Atherosclerotic heart disease of native coronary artery without angina pectoris; I73.9 Peripheral vascular disease, unspecified
CPT/HCPCS: 80053; 82962; 85025; 85610; 85730; J1644; Q9967; Z7610; J2250; J3010

== ENCOUNTER 2017-08-27 12:57 | Observation (INO) | payer BC ==
[~2017-08-27] VITALS: Ht 152.4 cm; Wt 60.0 kg
[~2017-08-27 12:57] MED LIST changes: +ATOR20TA38 PO; +GLIP5TAB13 PO
[2017-08-27 13:07] VITALS: Ht 152.4 cm; Wt 60.0 kg
--- NOTE | 2017-08-27 13:22 | ERA ---
ER Documentation Chief Complaint Date/Time DATE: 08/27/17 TIME: 13:20 Chief Complaint SENT FROM [facility] FOR EVAL OF RAPID HEART RATE. HPI The patient is a 72-year-old female, presenting to the ER from the [facility] because of tachycardia. She was found to have lower extremity angiogram by Dr. Pizano. She denies any symptoms, denies headache, neck pain, chest pain, palpitation, dyspnea, abdominal pain, vomiting, dysuria, diarrhea. She does not smoke nor drink Past medical history: Diabetes mellitus, hypertension, CAD, history of CVA with right hemiparesis, chronic kidney disease, peripheral arterial disease Past surgical history: Thyroidectomy ROS All systems reviewed and are negative except as per history of present illness. Medications Home Meds Active Scripts Linagliptin (TRADJENTA) 5 Mg Tablet, 5 MG PO DAILY for 30 Days, TAB 3 Refills Prov:YOUNG BETANCOURT 06/20/17 Amlodipine Besylate* (Amlodipine Besylate*) 5 Mg Tablet, 5 MG PO DAILY for 30 Days, TAB 3 Refills Prov:YOUNG BETANCOURT 06/20/17 Reported Medications Ferrous Sulfate* (Ferrous Sulfate*) 325 Mg Tabec, 325 MG PO DAILY, TAB 08/27/17 Glipizide* (Glipizide*) 5 Mg Tablet, 2.5 MG PO QPM, TAB 08/27/17 Glipizide* (Glipizide*) 5 Mg Tablet, 5 MG PO AC BREAKFAST, TAB 08/27/17 Atorvastatin Calcium* (Atorvastatin Calcium*) 20 Mg Tablet, 20 MG PO QHS, #30 TAB 08/27/17 Discontinued Reported Medications Metformin Hcl* (Metformin Hcl*) 500 Mg Tablet, 1000 MG PO WITH BREAKFAST DINNE, #60 TAB 06/19/17 Discontinued Scripts Sulfamethoxazole/Trimethoprim* (Bactrim Ds* Tablet) 1 Each Tablet, 1 TAB PO BID , #14 TAB Prov:SHALINI SMILEY PA-C 08/06/17 Cephalexin* (Keflex*) 500 Mg Capsule, 500 MG PO BID for 10 Days, CAP Prov:SHALINI SMILEY PA-C 08/06/17 Ibuprofen* (Motrin*) 600 Mg Tab, 600 MG PO Q6, #30 TAB Prov:SHALINI SMILEY PA-C 08/06/17 Hydrocodone/Acetaminophen ([place] 5-325 Tablet) 1 Each Tablet, 1 TAB PO Q6H Y for PAIN, #20 TAB Prov:SHALINI SMILEY PA-C 08/06/17 Multivit/Ca Carb/B Cmplx/Fa* (Sanjana-Mark*) 1 Tab Tab, 1 TAB PO DAILY for 30 Days , TAB 3 Refills Prov:YOUNG BETANCOURT 06/20/17 Ferrous Sulfate* (Ferrous Sulfate*) 325 Mg Tabec, 325 MG PO DAILY for 30 Days, TAB 3 Refills Prov:YOUNG BETANCOURT 06/20/17 Levofloxacin* (Levaquin*) 250 Mg Tablet, 250 MG PO DAILY@06 for 4 Days, TAB Prov:YOUNG BETANCOURT 06/20/17 Allergies Allergies: Coded Allergies: No Known Allergy (Unverified , 08/27/17) PMhx/Soc History of Surgery: Yes (THYROIDECTOMY) Anesthesia Reaction: No Hx Neurological Disorder: No Hx Respiratory Disorders: No Hx Cardiac Disorders: Yes (HTN,CAD, PAD) Hx Psychiatric Problems: No Hx Miscellaneous Medical Probl: No Hx Alcohol Use: No Hx Substance Use: No Hx Tobacco Use: No Physical Exam Vitals Vital Signs Date Time Temp Pulse Resp B/P Pulse Ox O2 Delivery O2 Flow Rate FiO2 08/27/17 15:23 90 18 151/63 08/27/17 13:07 97.4 104 21 151/74 99 Physical Exam Const: No acute distress. Head: Atraumatic. Eyes: Normal Conjunctiva. ENT: Normal External Ears, Nose and Mouth. Neck: Full range of motion. No meningismus. Resp: Clear to auscultation bilaterally. Cardio: Regular Tachycardic Abd: Soft, non distended, normal bowel sounds, non tender. Skin: No petechiae or rashes. Back: No midline or flank tenderness. Ext: No cyanosis, or edema. Neur: Awake and alert.Right hemiparalysis Psych: Normal Mood and Affect. Result Diagram: 08/27/17 1310 08/27/17 1310 Results 24 hrs Laboratory Tests Test 08/27/17 13:10 White Blood Count 9.010^3/ul Red Blood Count 3.5210^6/ul Hemoglobin 10.3g/dl Hematocrit 31.0% Mean Corpuscular Volume 88.1fl Mean Corpuscular Hemoglobin 29.3pg Mean Corpuscular Hemoglobin Concent 33.2g/dl Red Cell Distribution Width 14.6% Platelet Count 06296^3/UL Mean Platelet Volume 11.0fl Neutrophils % 65.3% Lymphocytes % 25.4% Monocytes % 6.0% Eosinophils % 2.7% Basophils % 0.3% Nucleated Red Blood Cells % 0.0/100WBC Neutrophils # 5.910^3/ul Lymphocytes # 2.310^3/ul Monocytes # 0.510^3/ul Eosinophils # 0.210^3/ul Basophils # 0.010^3/ul Nucleated Red Blood Cells # 0.010^3/ul Sodium Level 143mmol/L Potassium Level 4.2mmol/L Chloride Level 109mmol/L Carbon Dioxide Level 26mmol/L Anion Gap 12 Blood Urea Nitrogen 29mg/dl Creatinine 1.38mg/dl Glucose Level 177mg/dl Calcium Level 9.5mg/dl Phosphorus Level 4.1mg/dl Magnesium Level 1.8mg/dl Troponin I < 0.012ng/ml Thyroid Stimulating Hormone (TSH) 3.350MIU/L Current Medications Medications (Trade) Dose Ordered Sig/Kishan Route PRN Reason Start Time Stop Time Status Last Admin Dose Admin Linagliptin (Tradjenta) 5 mg DAILY PO 08/27/17 16:00 UNV Metoprolol Tartrate (Lopressor) 25 mg BID PO 08/27/17 21:00 Metoprolol Tartrate 25 mg 25 mg ONCE ONCE PO 08/27/17 16:00 08/27/17 16:52 DC Sodium Chloride (NS) 1,000 ml @ 75 mls/hr [id number] IV 08/27/17 15:58 IV Flush (NS 3 ml) 3 ml PER PROTOCOL IV 08/27/17 16:00 Ondansetron HCl (Zofran Inj) 4 mg Q6H PRN IV NAUSEA AND/OR VOMITING 08/27/17 16:00 Acetaminophen (Tylenol Tab) 650 mg Q6H PRN PO PAIN LEVEL 1-3 OR FEVER 08/27/17 16:00 UNV Acetaminophen/ Hydrocodone Bitart ([place] (5/325)) 1 tab Q6H PRN PO PAIN LEVEL 4-6 08/27/17 16:00 UNV Morphine Sulfate (morphine) 2 mg Q4H PRN IV PAIN LEVEL 7-10 08/27/17 16:00 Docusate Sodium (Colace) 100 mg Q12H PRN PO CONSTIPATION 08/27/17 16:00 UNV Magnesium Hydroxide (Milk Of Mag) 30 ml DAILY PRN PO CONSTIPATION 08/27/17 16:00 Bisacodyl (Dulcolax Supp) 10 mg DAILY PRN [place] CONSTIPATION 08/27/17 16:00 UNV Famotidine 20 mg 20 mg Q12 PO 08/27/17 21:00 UNV Magnesium Sulfate (Magnesium Sulfate 2 Gm/50 ml) 50 ml @ 25 mls/hr ONCE ONCE IVPB 08/27/17 16:30 08/27/17 18:29 Apixaban (Eliquis) 5 mg BID PO 08/27/17 21:00 UNV Miscellaneous Information (* Miscellaneous Pharmacy Order) Discontinue current oral sulfonylur... ONCE ONCE XX 08/27/17 16:30 08/27/17 16:31 UNV Diagnostic Test (Pha) (Accu-Chek) 1 ea 02 XX 08/28/17 02:00 UNV Miscellaneous Information (* Miscellaneous Pharmacy Order) HYPOGLYCEMIA PROTOCOL w... ONCE ONCE XX 08/27/17 16:30 08/27/17 16:31 UNV Insulin Aspart (Novolog Insulin Pen) NOVOLOG *MODERATE* ALGORITHM WITH MEALS BEDTIME SC 08/27/17 18:00 UNV Miscellaneous Information (* Miscellaneous Pharmacy Order) Discontinue all previ... ONCE ONCE XX 08/27/17 16:30 08/27/17 16:31 UNV Metoprolol Tartrate (Lopressor) 50 mg STK-MED ONCE .ROUTE 08/27/17 16:43 08/27/17 16:44 DC Procedures/MDM EKG: At 12:58 PM Read by emergency physician Rate/Rhythm: sinus tach 111 beats/min QRS, ST, T-waves: No ST elevation, no T inversion, LAD, left bundle branch block Impression: Abnormal EKG [address] [address] Radiology Main Line: [phone] DIAGNOSTIC IMAGING REPORT Patient: DONNY PAYTON : 1945 Age: 72 Sex: F MR #: [id number] DOS: 08/27/17 1302 Ordering MD: SARIAH WORTHY MD Location: E/R Room/Bed: PROCEDURE: XR Chest. CLINICAL INDICATION: Chest pain. TECHNIQUE: Single frontal view. COMPARISON: 06/19/2017. FINDINGS: The lungs are clear. The heart size is normal. There is calcification in the aorta consistent with atherosclerosis. There is no pleural effusion. There is no pneumothorax. IMPRESSION: 1. Atherosclerosis. 2. Otherwise normal chest x-ray. 3. No change from 06/19/2017. RPTAT: QQ .Dixon Mendieta MD, MD Date Time Electronically viewed and signed by .Dixon Mendieta MD, MD on 08/27/2017 13:22 .R/ CC: SARIAH WORTHY MD MEDICAL MAKING DECISION: The patient is a 72-year-old female, presenting with acute paroxysmal atrial fibrillation. She is currently in sinus tachycardia and does not require any intervention. The differential diagnoses considered include but are not limited to hyperthyroidism, acute coronary syndrome, acute myocardial infarction, pericarditis, pulmonary embolism, aortic dissection, pneumonia, pleural effusion , pneumothorax, GERD, chest wall pain. Departure Diagnosis: Primary Impression: Paroxysmal atrial fibrillation Additional Impression: Anemia Condition: Stable Comments I discussed the findings with the patient. I discussed the patient with her physician Dr. Betancourt who was made aware of the lab, the treatment, the patient condition. The patient is admitted to [facility] SARIAH WORTHY MD Aug 27, 2017 13:22
[2017-08-27 13:26] LABS: BASOPHILS % 0.3 % (0.0-2.0); EOSINOPHILS # 0.2 10^3/ul (0.0-0.5); EOSINOPHILS % 2.7 % (0.0-7.0); HEMOGLOBIN 10.3 g/dl (12.0-16.0); LYMPHOCYTES # 2.3 10^3/ul (0.8-2.9); LYMPHOCYTES % 25.4 % (15.0-51.0); MEAN CORPUSCULAR HEMOGLOBIN 29.3 pg (29.0-33.0); MEAN CORPUSCULAR HGB CONC 33.2 g/dl (32.0-37.0); MEAN CORPUSCULAR VOLUME 88.1 fl (82.0-101.0); MONOCYTE # 0.5 10^3/ul (0.3-0.9); NEUTROPHIL # 5.9 10^3/ul (1.6-7.5); NEUTROPHILS % 65.3 % (39.0-77.0); PLATELET COUNT 243 10^3/UL (140-415); RED BLOOD COUNT 3.52 10^6/ul (4.20-5.40); RED CELL DISTRIBUTION WIDTH 14.6 % (11.5-14.5)
[2017-08-27 13:50] LABS: ANION GAP 12 (8-16); BLOOD UREA NITROGEN 29 mg/dl (7-20); CALCIUM 9.5 mg/dl (8.4-10.2); CARBON DIOXIDE 26 mmol/L (21-31); CHLORIDE 109 mmol/L (97-110); CREATININE 1.38 mg/dl (0.44-1.00); GLUCOSE 177 mg/dl (70-220); MAGNESIUM 1.8 mg/dl (1.7-2.5); PHOSPHORUS 4.1 mg/dl (2.5-4.9); POTASSIUM 4.2 mmol/L (3.5-5.1); SODIUM 143 mmol/L (135-144)
[2017-08-27 14:01] LABS: TROPONIN-I < 0.012 ng/ml (0.00-0.12)
[2017-08-27] MEDS ORDERED: FER325 PO (14:51)
[2017-08-27] MEDS ORDERED: HYDROCODONE/APAP (5/325) TAB PO PRN (16:00)
[2017-08-27] MEDS ORDERED: ONDANSETRON 4 MG INJ IV PRN (16:00)
[2017-08-27] MEDS ORDERED: METOPROLOL 25 MG TAB PO ONE (16:00)
[2017-08-27] MEDS ORDERED: morphine 2 MG INJ IV PRN (16:00)
[2017-08-27] MEDS ORDERED: BISACODYL 10 MG SUPP PR PRN (16:00)
[2017-08-27] MEDS ORDERED: DOCUSATE SODIUM 100 MG CAP PO PRN (16:00)
[2017-08-27] MEDS ORDERED: ACETAMINOPHEN 325 MG TAB PO PRN (16:00)
[2017-08-27] MEDS ORDERED: NACL 0.9% 3 ML SYG IV SCH (16:00)
[2017-08-27] MEDS ORDERED: MAGNESIUM HYDROXIDE 30ML CUP PO PRN (16:00)
[2017-08-27] MEDS ORDERED: MAGNESIUM SULFATE 2 GM/50 ML 50 ML IVPB ONE (16:30)
--- NOTE | 2017-08-27 16:41 | HP ---
Date/Time of Note Date/Time of Note DATE: 08/27/17 TIME: 16:23 Assessment/Plan VTE Prophylaxis VTE Prophylaxis Intervention: other (Eliquis) Lines/Catheters [facility] [place] Assessment/Plan Assessment/Plan 72-year-old female with: 1. 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 Back in sinus rhythm heart rate in the 80s-90s, she will be started on metoprolol 25 mg p.o. twice daily and also Eliquis 5 mg p.o. twice daily. Monitor on observation overnight, check thyroid function testing. We will review her previous records if no echocardiogram done before, we will order one. Rule out acute coronary syndrome, first cardiac enzymes negative. 2. Peripheral arterial disease with known right lower extremity rest pain, right lower extremity episodes of ischemia, with SFA occlusion and tibial disease on previous workup, patient was about to have right lower extremity angiogram today when she went into [facility] and the procedure had to be aborted. I had a discussion with Dr. Lagos, he is not planning to do the procedure on this admission. He agrees with full anticoagulation, follow-up with vascular surgery for rescheduling of the right lower extremity angiogram at a later date. Check fasting lipid panel, patient may benefit from statin therapy. 3. Diabetes mellitus: Check hemoglobin A1c, resume Tradjenta, sliding scale insulin. 4. Hypertension: Continue Norvasc, start metoprolol 25 mg p.o. twice daily 5. Chronic kidney disease stage III: IV fluids, replete magnesium level in setting of atrial fibrillation, monitor renal function with a.m. labs. 6. Old CVA with right hemiparesis: Continue current care, secondary stroke prevention in setting of paroxysmal atrial fibrillation, with Eliquis. Prophylaxis: Eliquis already on board for anticoagulation, Pepcid for GI prophylaxis Disposition: Telemetry observation overnight, heart rate control, initiation of anticoagulation, discharge planning within 24 hours. HPI/ROS Admit Date/Time Admit Date/Time Hx of Present Illness Chief complaint: Atrial fibrillation preprocedure History of presenting illness: This is a 72-year-old female with known peripheral vascular disease, coronary artery disease, chronic kidney disease stage III, diabetes mellitus, hypertension, old CVA with chronic right hemiparesis who was brought in electively for right lower extremity angiogram as part of workup for episodes of right lower extremity rest pain and while being prepped preprocedure patient went into atrial fibrillation with rapid ventricular rate. Patient was therefore sent to the emergency department as she has no previous history of it or at least not have been diagnosed with it, however she does have a history of cerebrovascular accident with right hemiparesis for the past 7 years. I also had a discussion with Dr. Lagos, he was suspecting that the patient is embolizing to the right lower extremity and causing episodes of ischemia and rest pain. Therefore we agreed that the patient will be admitted on observation for heart rate control and initiation of anticoagulation. By the time I am seeing her in the emergency department, she has converted to sinus rhythm, she is slightly tachycardic still but mostly in the 90s. She will be started on beta-blockers, will continue the rest of her medications , check fasting lipid panel as she can benefit from statin therapy if she is able to tolerate it. Also she will be started on Eliquis for full anticoagulation and stroke prevention. Patient currently is comfortable, she denies any chest pain, she did not feel any palpitations, she denies shortness of breath. ROS Constitutional: no complaints, other (Primarily [place]ian-speaking) Eyes: no complaints ENT: no complaints Cardiovascular: no complaints Gastrointestinal: no complaints Genitourinary: no complaints Musculoskeletal: no complaints Skin: no complaints Neurologic: no complaints Endocrine: no complaints Lymphatic: no complaints Psychological: no complaints PMH/Family/Social Past Medical History Diabetes mellitus Hypertension Coronary artery disease Peripheral arterial disease Old CVA with right hemiparesis chronic for the past 7 years CKD stage III Past Surgical History Status post thyroidectomy for goiter, 25 years ago Family History Significant Family History: no pertinent family hx Social History Alcohol Use: none Smoking Status: Never smoker Drug Use: none Exam/Review of Systems Vital Signs Vitals Vital Signs Date Time Temp Pulse Resp B/P Pulse Ox O2 Delivery O2 Flow Rate FiO2 08/27/17 15:23 90 18 151/63 08/27/17 13:07 97.4 99 Exam Constitutional: alert, oriented, other (Right hemiparesis), well developed Respiratory: clear to auscultation, normal air movement Cardiovascular: nl pulses, other (Back in sinus rhythm), regular rate and rhythm Gastrointestinal: non-tender, soft Musculoskeletal: nl extremities to inspection, nl gait and stance Neurological: ELECTRICAL CONTROLS ASSEMBLER II-XII intact, focal weakness (Right hemiparesis), nl mental status, nl speech Labs Result Diagram: 08/27/17 1310 08/27/17 1310 Medications Medications Current Medications Linagliptin (Tradjenta) 5 mg DAILY PO ; Start 08/27/17 at 16:00; Status UNV Metoprolol Tartrate (Lopressor) 25 mg BID PO ; Start 08/27/17 at 21:00; Status UNV Metoprolol Tartrate 25 mg 25 mg ONCE ONCE PO ; Start 08/27/17 at 16:00; Stop at 16:01; Status UNV Sodium Chloride (NS) 1,000 ml @ 75 mls/hr [id number] IV ; Start 08/27/17 at 15:58 ; Status UNV Ondansetron HCl (Zofran Inj) 4 mg Q6H PRN IV NAUSEA AND/OR VOMITING; Start at 16:00; Status UNV Acetaminophen (Tylenol Tab) 650 mg Q6H PRN PO PAIN LEVEL 1-3 OR FEVER; Start at 16:00; Status UNV Acetaminophen/ Hydrocodone Bitart ([place] (5/325)) 1 tab Q6H PRN PO PAIN LEVEL 4 -6; Start 08/27/17 at 16:00; Status UNV Morphine Sulfate (morphine) 2 mg Q4H PRN IV PAIN LEVEL 7-10; Start 08/27/17 at 16:00; Status UNV Docusate Sodium (Colace) 100 mg Q12H PRN PO CONSTIPATION; Start 08/27/17 at 16: 00; Status UNV Magnesium Hydroxide (Milk Of Mag) 30 ml DAILY PRN PO CONSTIPATION; Start at 16:00; Status UNV Bisacodyl (Dulcolax Supp) 10 mg DAILY PRN [place] CONSTIPATION; Start 08/27/17 at 16 :00; Status UNV Famotidine 20 mg 20 mg Q12 PO ; Start 08/27/17 at 21:00; Status UNV Magnesium Sulfate (Magnesium Sulfate 2 Gm/50 ml) 50 ml @ 25 mls/hr ONCE ONCE IVPB ; Start 08/27/17 at 16:30; Stop 08/27/17 at 18:29; Status UNV Apixaban (Eliquis) 5 mg BID PO ; Start 08/27/17 at 21:00; Status UNV Miscellaneous Information (* Miscellaneous Pharmacy Order) Discontinue current oral sulfonylur... ONCE ONCE XX ; Start 08/27/17 at 16:30; Stop 08/27/17 at 16: 31; Status UNV Diagnostic Test (Pha) (Accu-Chek) 1 XX ; Start 08/28/17 at 02:00; Status UNV Miscellaneous Information (* Miscellaneous Pharmacy Order) HYPOGLYCEMIA PROTOCOL w... ONCE ONCE XX ; Start 08/27/17 at 16:30; Stop 08/27/17 at 16:31; Status UNV Miscellaneous Information (* Miscellaneous Pharmacy Order) Discontinue all previ... ONCE ONCE XX ; Start 08/27/17 at 16:30; Stop 08/27/17 at 16:31; Status UNV Procedures Procedures PROCEDURE: XR Chest. CLINICAL INDICATION: Chest pain. TECHNIQUE: Single frontal view. COMPARISON: 06/19/2017. FINDINGS: The lungs are clear. The heart size is normal. There is calcification in the aorta consistent with atherosclerosis. There is no pleural effusion. There is no pneumothorax. IMPRESSION: 1. Atherosclerosis. 2. Otherwise normal chest x-ray. 3. No change from 06/19/2017. RPTAT: QQ .Dixon Mendieta MD, MD Date Time Electronically viewed and signed by .Dixon Mendieta MD, MD on 08/27/2017 13:22 Currently on telemetry/EKG sinus rhythm YOUNG BETANCOURT Aug 27, 2017 16:33
[2017-08-27] MEDS ORDERED: METOPROLOL 50 MG TAB ONE (16:43)
[2017-08-27] MEDS: LINAGLIPTIN 5 MG TABLET PO SCH (17:04)
[2017-08-27 17:11] LABS: INR 0.91; PROTIME 12.2 Sec (12.2-14.2)
[2017-08-27 17:12] LABS: PARTIAL THROMBOPLASTIN TIME 26.5 Sec (25.0-35.0)
[2017-08-27] MEDS ORDERED: GLUCOSE GEL 15 GRAM TUBE BUCCAL PRN (17:30)
[2017-08-27] MEDS ORDERED: GLUCOSE GEL 15 GRAM TUBE PO PRN ×2 (17:30)
[2017-08-27] MEDS ORDERED: DEXTROSE 50% 50 ML SYRINGE IV PRN ×2 (17:30)
[2017-08-27] MEDS ORDERED: GLUCAGON 1 MG INJ IM PRN (17:30)
[2017-08-27] MEDS: SOD CHLORIDE 0.9% 1,000 ML IV SCH (18:00)
[2017-08-27] MEDS: INSULIN ASPART [NOVOLOG] 3 ML PEN SC SCH ×2 (18:24→20:22)
[2017-08-27 19:42] LABS: CREATINE KINASE 41 IU/L (23-200)
[2017-08-27 19:59] LABS: TROPONIN-I < 0.012 ng/ml (0.00-0.12)
[2017-08-27 20:00] VITALS: PULSE 64
[2017-08-27 20:35] VITALS: BP 113/73; RESP 18
[2017-08-27] MEDS: METOPROLOL 25 MG TAB PO SCH (20:44)
[2017-08-27] MEDS: APIXABAN 5 MG TABLET PO SCH (20:44)
[2017-08-27] MEDS ORDERED: FAMOTIDINE 20 MG TAB PO SCH (21:00)
[2017-08-28] VITALS (8 sets, daily range): BP systolic 139–155; BP diastolic 64–70; PULSE 57–63; RESP 19–20
[2017-08-28 01:20] LABS: CREATINE KINASE 37 IU/L (23-200)
[2017-08-28 01:33] LABS: CK-MB 0.51 ng/ml (0.0-2.4)
[2017-08-28 01:42] LABS: TROPONIN-I < 0.012 ng/ml (0.00-0.12)
[2017-08-28] MEDS ORDERED: ACCU-CHEK XX SCH (02:00)
[2017-08-28] MEDS: SOD CHLORIDE 0.9% 1,000 ML IV SCH (06:10)
[2017-08-28 08:12] LABS: BASOPHILS % 0.5 % (0.0-2.0); EOSINOPHILS # 0.3 10^3/ul (0.0-0.5); HEMATOCRIT 29.4 % (37.0-47.0); HEMOGLOBIN 9.5 g/dl (12.0-16.0); LYMPHOCYTES # 2.4 10^3/ul (0.8-2.9); LYMPHOCYTES % 27.4 % (15.0-51.0); MEAN CORPUSCULAR HEMOGLOBIN 28.6 pg (29.0-33.0); MEAN CORPUSCULAR HGB CONC 32.3 g/dl (32.0-37.0); MEAN CORPUSCULAR VOLUME 88.6 fl (82.0-101.0); MEAN PLATELET VOLUME 11.1 fl (7.4-10.4); MONOCYTE # 0.7 10^3/ul (0.3-0.9); MONOCYTES % 7.8 % (0.0-11.0); NEUTROPHIL # 5.2 10^3/ul (1.6-7.5); NEUTROPHILS % 61.1 % (39.0-77.0); PLATELET COUNT 231 10^3/UL (140-415); RED BLOOD COUNT 3.32 10^6/ul (4.20-5.40); RED CELL DISTRIBUTION WIDTH 14.7 % (11.5-14.5); WHITE BLOOD COUNT 8.6 10^3/ul (4.8-10.8)
[2017-08-28] MEDS: APIXABAN 5 MG TABLET PO SCH (08:35)
[2017-08-28] MEDS: LINAGLIPTIN 5 MG TABLET PO SCH (08:35)
[2017-08-28] MEDS: METOPROLOL 25 MG TAB PO SCH (08:35)
[2017-08-28 08:40] LABS: ALBUMIN 3.7 g/dl (3.3-4.9); ALBUMIN/GLOBULIN RATIO 0.92; BILIRUBIN,INDIRECT 0.2 mg/dl (0-1.1); BILIRUBIN,TOTAL 0.2 mg/dl (0.2-1.3); CHOL/HDL RATIO 4.8 RATIO; CREATININE 1.4 mg/dl (0.44-1.00); MAGNESIUM 2.5 mg/dl (1.7-2.5); POTASSIUM 4.2 mmol/L (3.5-5.1); TOTAL PROTEIN 7.7 g/dl (6.1-8.1)
[2017-08-28] MEDS: INSULIN ASPART [NOVOLOG] 3 ML PEN SC SCH (08:47)
[2017-08-28] MEDS ORDERED: INFLUENZA VIRUS VACCINE 0.5 ML (DISPENSING) IM* ONE (09:00)
--- NOTE | 2017-08-28 10:01 | PN ---
Date/Time of Note Date/Time of Note DATE: 08/28/17 TIME: 09:54 Assessment/Plan VTE Prophylaxis VTE Prophylaxis Intervention: other (Eliquis ) Lines/Catheters IV [facility] Peripheral IV Assessment/Plan Assessment/Plan 72-year-old female with: 1. 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 Back in sinus rhythm heart rate in the 80s-90s, she will be started on metoprolol 25 mg p.o. twice daily and also Eliquis 5 mg p.o. twice daily. Patient remained stable overnight in sinus rhythm. Lowest heart rate was 57. Vital signs stable. Check enzymes negative 3, 2D echocardiogram has been done final reading pending. 2. Peripheral arterial disease with known right lower extremity rest pain, right lower extremity episodes of ischemia, with SFA occlusion and tibial disease on previous workup, patient was about to have right lower extremity angiogram today when she went into [facility] and the procedure had to be aborted. I had a discussion with Dr. Lagos, he is not planning to do the procedure on this admission. He agrees with full anticoagulation, follow-up with vascular surgery for rescheduling of the right lower extremity angiogram at a later date. Benefit from statin therapy. 3. Diabetes mellitus: Check hemoglobin A1c, resume Tradjenta, sliding scale insulin. 4. Hypertension: continue metoprolol 25 mg p.o. twice daily, Norvasc has been discontinued 5. Chronic kidney disease stage III: IV fluids, replete magnesium level in setting of atrial fibrillation, no function stable. 6. Old CVA with right hemiparesis: Continue current care, secondary stroke prevention in setting of paroxysmal atrial fibrillation, with Eliquis. Prophylaxis: Eliquis already on board for anticoagulation, Pepcid for GI prophylaxis Disposition: Discharge patient today, she needs follow-up outpatient closely, her Eliquis may need to be re-dose down the line if her chronic kidney disease keeps progressing. Subjective 24 Hr Interval Summary Free Text/Dictation Patient remains in sinus rhythm since admission, looks like she only had one witnessed episode of atrial fibrillation which was in the pre-procedure area of the Shaft Mechanic. Patient is stable on metoprolol Patient on Eliquis. Exam/Review of Systems Vital Signs Vitals Vital Signs Date Time Temp Pulse Resp B/P Pulse Ox O2 Delivery O2 Flow Rate FiO2 08/28/17 09:43 63 08/28/17 07:55 98.4 20 147/67 98 Intake and Output 08/27/17 08/27/17 08/28/17 15:00 23:00 07:00 Intake Total 50 ml 1025 ml Balance 50 ml 1025 ml Exam Constitutional: alert, oriented, other (Right hemiparesis), well developed Respiratory: clear to auscultation, normal air movement Cardiovascular: nl pulses, other (In sinus rhythm), regular rate and rhythm Gastrointestinal: non-tender, soft Musculoskeletal: other (right hemiparesis, decreased pulses right lower extremity.) Extremities: normal pulses Neurological: SOLUTIONS MANAGER II-XII intact, focal weakness (Right hemiparesis), nl mental status, nl speech Results Result Diagram: 08/28/17 0757 08/28/17 0757 Results 24 hrs Laboratory Tests Test 08/27/17 13:10 08/27/17 18:05 08/27/17 19:18 08/27/17 20:10 White Blood Count 9.0 Red Blood Count 3.52 L Hemoglobin 10.3 L Hematocrit 31.0 L Mean Corpuscular Volume 88.1 Mean Corpuscular Hemoglobin 29.3 Mean Corpuscular Hemoglobin Concent 33.2 Red Cell Distribution Width 14.6 H Platelet Count 243 Mean Platelet Volume 11.0 H Neutrophils % 65.3 Lymphocytes % 25.4 Monocytes % 6.0 Eosinophils % 2.7 Basophils % 0.3 Nucleated Red Blood Cells % 0.0 Neutrophils # 5.9 Lymphocytes # 2.3 Monocytes # 0.5 Eosinophils # 0.2 Basophils # 0.0 Nucleated Red Blood Cells # 0.0 Prothrombin Time 12.2 Prothrombin Time Ratio 1.0 INR International Normalized Ratio 0.91 Activated Partial Thromboplast Time 26.5 Sodium Level 143 Potassium Level 4.2 Chloride Level 109 Carbon Dioxide Level 26 Anion Gap 12 Blood Urea Nitrogen 29 H Creatinine 1.38 H Glucose Level 177 Calcium Level 9.5 Phosphorus Level 4.1 Magnesium Level 1.8 Troponin I < 0.012 < 0.012 Thyroid Stimulating Hormone (TSH) 3.350 Free Thyroxine 1.31 Bedside Glucose 143 119 Creatine Kinase 41 Creatine Kinase Index 1.5 Creatinine Kinase MB (Mass) 0.60 Test 08/28/17 00:50 08/28/17 07:57 08/28/17 08:21 Creatine Kinase 37 Creatine Kinase Index 1.4 Creatinine Kinase MB (Mass) 0.51 Troponin I < 0.012 White Blood Count 8.6 Red Blood Count 3.32 L Hemoglobin 9.5 L Hematocrit 29.4 L Mean Corpuscular Volume 88.6 Mean Corpuscular Hemoglobin 28.6 L Mean Corpuscular Hemoglobin Concent 32.3 Red Cell Distribution Width 14.7 H Platelet Count 231 Mean Platelet Volume 11.1 H Neutrophils % 61.1 Lymphocytes % 27.4 Monocytes % 7.8 Eosinophils % 3.0 Basophils % 0.5 Nucleated Red Blood Cells % 0.0 Neutrophils # 5.2 Lymphocytes # 2.4 Monocytes # 0.7 Eosinophils # 0.3 Basophils # 0.0 Nucleated Red Blood Cells # 0.0 Sodium Level 143 Potassium Level 4.2 Chloride Level 111 H Carbon Dioxide Level 23 Anion Gap 13 Blood Urea Nitrogen 31 H Creatinine 1.40 H Glucose Level 137 # Hemoglobin A1c 8.7 H Calcium Level 9.0 Magnesium Level 2.5 Total Bilirubin 0.2 Direct Bilirubin 0.00 Indirect Bilirubin 0.2 Aspartate Amino Transf (AST/SGOT) 30 Alanine Aminotransferase (ALT/SGPT) 31 Alkaline Phosphatase 99 Total Protein 7.7 Albumin 3.7 Globulin 4.00 H Albumin/Globulin Ratio 0.92 Triglycerides Level 142 Cholesterol Level 140 LDL Cholesterol, Calculated 83 HDL Cholesterol 29 L Cholesterol/HDL Ratio 4.8 Bedside Glucose 144 Medications Medications Current Medications Linagliptin (Tradjenta) 5 mg DAILY PO Last administered on 08/28/17 08:35; Admin Dose 5 MG; Start 08/27/17 at 16:00 Metoprolol Tartrate 25 mg 25 mg BID PO Last administered on 08/28/17 08:35; Admin Dose 25 MG; Start 08/27/17 at 21:00 Sodium Chloride (NS) 1,000 ml @ 75 mls/hr [id number] IV Last administered on 08/28 06:10; Admin Dose 75 MLS/HR; Start 08/27/17 at 15:58 Ondansetron HCl (Zofran Inj) 4 mg Q6H PRN IV NAUSEA AND/OR VOMITING; Start at 16:00 Acetaminophen (Tylenol Tab) 650 mg Q6H PRN PO PAIN LEVEL 1-3 OR FEVER; Start at 16:00 Acetaminophen/ Hydrocodone Bitart ([place] (5/325)) 1 tab Q6H PRN PO PAIN LEVEL 4 -6; Start 08/27/17 at 16:00 Morphine Sulfate (morphine) 2 mg Q4H PRN IV PAIN LEVEL 7-10; Start 08/27/17 at 16:00 Docusate Sodium (Colace) 100 mg Q12H PRN PO CONSTIPATION; Start 08/27/17 at 16: 00 Magnesium Hydroxide (Milk Of Mag) 30 ml DAILY PRN PO CONSTIPATION; Start at 16:00 Bisacodyl (Dulcolax Supp) 10 mg DAILY PRN [place] CONSTIPATION; Start 08/27/17 at 16 :00 Famotidine (Pepcid) 20 mg Q24H PO Last administered on 08/27/17 20:44; Admin Dose 20 MG; Start 08/27/17 at 21:00 Apixaban (Eliquis) 5 mg BID PO Last administered on 08/28/17 08:35; Admin Dose 5 MG; Start 08/27/17 at 21:00 Diagnostic Test (Pha) (Accu-Chek) 1 ea 02 XX ; Start 08/28/17 at 02:00 Miscellaneous Information 1 ea NOTE XX ; Start 08/27/17 at 17:30 Glucose (Glutose) 15 gm Q15M PRN PO DECREASED GLUCOSE; Start 08/27/17 at 17:30 Glucose (Glutose) 22.5 gm Q15M PRN PO DECREASED GLUCOSE; Start 08/27/17 at 17: 30 Dextrose (D50w Syringe) 25 ml Q15M PRN IV DECREASED GLUCOSE; Start 08/27/17 at 17:30 Dextrose (D50w Syringe) 50 ml Q15M PRN IV DECREASED GLUCOSE; Start 08/27/17 at 17:30 Glucagon (Glucagen) 1 mg Q15M PRN IM DECREASED GLUCOSE; Start 08/27/17 at 17:30 Glucose (Glutose) 15 gm Q15M PRN BUCCAL DECREASED GLUCOSE; Start 08/27/17 at 17 :30 YOUNG BETANCOURT Aug 28, 2017 10:01
--- NOTE | 2017-08-28 10:03 | PDOCDIS ---
Discharge Instructions CONDITION Patient Condition: Stable HOME CARE INSTRUCTIONS: Special Diet: carb controlled diet ACTIVITY: Activity Restrictions Comment: Resume home activity, patient does have right hemiparesis chronically. FOLLOW UP/APPOINTMENTS Follow-up Plan Follow-up with vascular surgery as an outpatient as she still needs a right lower extremity angiogram Follow-up with primary care physician within 1 week, patient will need close monitoring of her renal function for adjustment of her Eliquis doses if needed Referral to cardiology as needed. YOUNG BETANCOURT Aug 28, 2017 10:03
[2017-08-28] MEDS ORDERED: APIX5TAB PO (10:04)
[2017-08-28] MEDS ORDERED: METO-448 PO (10:04)
[2017-08-28] MEDS ORDERED: ATOR20TA38 PO (10:53)
--- NOTE | 2017-08-28 15:00 | RADRPT ---
Echocardiogram Report Patient Name: DONNY PAYTON Gender: Female Date: 1945 Study Date: 28-Aug-2017 Associate Professor Of Geology: Luis Delgadillo [facility] Location: [id number] Ref. Physician: RICHARDSON BETANCOURT Quality: Good Procedures: Transthoracic echocardiogram with complete 2D, M-Mode, and doppler examination. Indications: new onset paroxysmal AFib. 2D/M Mode Doppler Measurement Value Normal Ranges Measurement Value Normal Ranges LVIDd 2D 3.5 3.5 - 5.6 cm AV Peak Jasson 1.5 m/sec LVIDs 2D 2.2 2.1 - 4.1 cm AV Peak PG 8.6 mmHg LVPWd 2D 0.9 0.6 - 1.1 cm LVOT Peak Jasson 0.7 m/sec IVSd 2D 1.0 0.6 - 1.1 cm LVOT Peak PG 1.8 mmHg AoR Diam 2D 2.2 2.0 - 3.7 cm MV E Peak Jasson 0.7 m/sec EDV 2D 50.6 cm3 MV A Peak Jasson 1.0 m/sec ESV 2D 10.8 cm3 MV E/A 0.7 LA Dimen 2D 2.5 2.3 - 4.0 cm MV Decel Time 180 msec MV Decel Hunt 4 MV E/A 0.7 Findings Left Ventricle: Normal left ventricular systolic function. Normal left ventricular cavity size. Normal left ventricular wall thickness. Ejection fraction is visually estimated at 65 %. Tissue Doppler/Mitral Doppler indices are consistent with impaired relaxation (Stage I diastolic dysfunction). Right Ventricle: Normal right ventricular size. Normal right ventricular systolic function. Left Atrium: The left atrium is normal in size. Right Atrium: The right atrium is normal in size. Mitral Valve: Normal appearance and function of the mitral valve with trace physiologic regurgitation. Aortic Valve: No significant aortic stenosis or insufficiency. Aortic cusps appear mildly calcified. Tricuspid Valve: Normal appearance and function of the tricuspid valve with trace physiologic regurgitation. Pulmonic Valve: Normal pulmonic valve appearance. Pericardium: Normal pericardium with no significant pericardial effusion. Aorta: Normal aortic root. IVC: Normal size and normal respiratory collapse consistent with normal right atrial pressure. Conclusions 1.Normal left ventricular systolic function. Normal left ventricular cavity size. Normal left ventricular wall thickness. Ejection fraction is visually estimated at 65 %. Tissue Doppler/Mitral Doppler indices are consistent with impaired relaxation (Stage I diastolic dysfunction). 2.Normal right ventricular size. Normal right ventricular systolic function. 3.The left atrium is normal in size. 4.The right atrium is normal in size. 5.No significant valvular stenosis or regurgitation seen. 6.Normal pericardium with no significant pericardial effusion. Electronically Signed By: Rey Townsend 28-Aug-2017 14:59:54 -0700 Patient Name: DONNY PAYTON Study Date: 28-Aug-2017 [id number]
[2017-08-28] MEDS ORDERED: ATORVASTATIN 20 MG TAB PO SCH (21:00)
== END 2017-08-28 12:26 | disposition home health service (06) ==
LOC: E/R 12:57 → MS4 15:17
PROVIDERS: ADMIT Internal Medicine; ATTEND Internal Medicine
DX: I48.0 Paroxysmal atrial fibrillation (principal); R00.0 Tachycardia, unspecified; I69.351 Hemiplegia and hemiparesis following cerebral infarction affecting right dominant side; E11.51 Type 2 diabetes mellitus with diabetic peripheral angiopathy without gangrene; I12.9 Hypertensive chronic kidney disease with stage 1 through stage 4 chronic kidney disease, or unspecified chronic kidney disease; E11.22 Type 2 diabetes mellitus with diabetic chronic kidney disease; N18.3 Chronic kidney disease, stage 3 (moderate); Z23 Encounter for immunization
CPT/HCPCS: 36415; 71010; 80048; 80053; 80061; 82550; 82553; 82962; 83036; 83735; 84100; 84439; 84443; 84484; 85025; 85610; 85730; 90686; 93005; 93306; 99285; J1815; J3475; J7030; Z7500; Z7610; G0378